=== PATIENT | male | born 1940 | race Caucasian/White ===

== ENCOUNTER → 2018-02-05 | Outpatient (CLI) | payer OTHER, MEDICARE ==
[~2018-02-05] MED LIST: ASPIRIN325 PO
--- NOTE | ~2018-02-05 | EKG ---
[place] [address] [facility] [place] [address] ELECTROCARDIOGRAM REPORT Name: MEENAKSHI MENON Room #: REG CLI JessikaJessika#: [id number] Admission: 02/05/18 Attend Phys: Tian Narayanan MD Discharge: Date of : 44 Report #: [id number] THIS REPORT FOR: //name// [facility] Test Date: 2018-02-05 Test Time: 14:53:09 Pat Name: MEENAKSHI MENON Department: Room: Gender: M [employer]ist: SAMM : [id number] Requested By: Tian Narayanan Order Number: [id number] MD: Blanco Delgado Measurements Intervals [place] Rate: 62 P: -8 ME: 115 QRS: -54 QRSD: 147 T: 96 QT: 460 QTc: 468 Interpretive Statements Atrial-sensed ventricular-paced rhythm No further analysis attempted due to paced rhythm Baseline wander in lead(s) V3 Compared to ECG 05/18/2015 14:22:26 No significant change was found Electronically Signed On 02-05-2018 17:50:37 CDT by Blanco Delgado [email or web address] <ELECTRONICALLY SIGNED> By: Blanco Delgado MD, [facility] 02/05/18 1750 1453 1453 Blanco Delgado MD, [facility] /EPI
== END | disposition home or self-care (01) ==
LOC: LITH 14:27
DX: N20.0 Calculus of kidney (principal); I10 Essential (primary) hypertension; Z79.899 Other long term (current) drug therapy; Z98.890 Other specified postprocedural states; Z98.41 Cataract extraction status, right eye; Z98.42 Cataract extraction status, left eye; Z85.46 Personal history of malignant neoplasm of prostate